=== PATIENT | male | born 1950 | race Caucasian/White ===

== ENCOUNTER 2025-07-06 10:44 | Emergency (ER) | payer MEDICARE, SELFPAY ==
--- OUTSIDE RECORDS SUMMARY | 2025-07-06 10:52 | XMS_ITS | Encounter Summary ---
Author Organization [facility] Address [address] [place] [address] Phone Care Team Providers Care Construction Safety Manager Name Role Phone Jacinto Freeman MD Primary Care Provider [phone] Jacinto Freeman MD Primary Care Provider [phone] Jacinto Freeman MD Primary Care Provider [phone] Jacinto Freeman MD Unavailable [phone] Jose Luis Colmenares NP Unavailable [phone] Encounter Details Date Type Department Care Team (Latest Contact Info) Description 09/22/2008 Orders Only [facility] Scanning, Provider Social History Tobacco Use Types Packs/Day Years Used Date Smoking Tobacco: Never Assessed Sex and Gender Information Value Date Recorded Sex Assigned at Not on file Legal Sex Male 11:50 PM [employer]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 Gender Identity Not on file Sexual Orientation Not on file documented as of this encounter Plan of Treatment Scheduled Procedures Name Priority Associated Diagnoses Date/Ti me COLONOSCOPY Encounter for screening colonoscopy documented as of this encounter Procedures Procedure Name Priority Date/Time Associated Diagnosis Comments CARDIOLOGY DOCUMENT SCAN 09/22/2008 documented in this encounter Results * SCAN - CARDIOLOGY (09/22/2008) Anatomical Region Laterality Modality Other us Provider Scanning [facility] CARDIAC SERVICES PROCEDURES Final Result documented in this encounter Visit Diagnoses Not on filedocumented in this encounter Additional Health Concerns Infection Onset Date Last Indicated Resolved Time COVID: Suspected 10/30/2024 10/30/2024 10/30/2024 1:15 PM CDT documented as of this encounter Care Teams Construction Safety Manager Relationship Specialty Start Date End Date Jacinto Freeman MD [address] [place] [address] PCP - General 11/02/07 06/06/11 Jacinto Freeman MD [address] [place] [address] PCP - General 06/07/11 12/26/17 Jacinto Freeman MD [address] [place] [address] PCP - General 12/27/17 Jacinto Freeman MD [address] [place] [address] 12/27/17 Jose Luis Colmenares, KIRT [address] [place] [address] [place] [address] Nurse Practitioner Orthopedic Surgery 04/11/25 documented as of this encounter
--- OUTSIDE RECORDS SUMMARY | 2025-07-06 10:52 | XMS_ITS | Encounter Summary ---
Author Organization [facility] Address [address] [place] [address] Phone Care Team Providers Care Tandem Operator Name Role Phone Jacinto Freeman MD Primary Care Provider [phone] Jacinto Freeman MD Unavailable [phone] Jose Luis Colmenares NP Unavailable [phone] Encounter Details Date Type Department Care Team (Late st Contact Info) Description 12/27/2017 Telephone [facility] Cardiology [address] [facility] 8[address] [place] [address] [place] [id number] Gordon Castillo MD [address] [address] Social History Tobacco Use Types Packs/Day Years Used Date Smoking Tobacco: Never Smokeless Tobacco: Never Sex and Gender Information Value Date Recorded Sex Assigned at Not on file 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 Gender Identity Not on file Sexual Orientation Not on file documented as of this encounter Plan of Treatment Scheduled Procedures Name Priority Associated Diagnoses Date/Ti me COLONOSCOPY Encounter for screening colonoscopy documented as of this encounter Visit Diagnoses Not on filedocumented in this encounter Additional Health Concerns Infection Onset Date Last Indicated Resolved Time COVID: Suspected 10/30/2024 10/30/2024 10/30/2024 1:15 PM CDT documented as of this encounter Care Teams Tandem Operator Relationship Specialty Start Date End Date Jacinto Freeman MD [address] [place] [address] PCP - General 12/27/17 Jacinto Freeman MD [address] [place] [address] 12/27/17 Jose Luis Colmenares NP [address] [place] [address] [place] [address] Nurse Practitioner Orthopedic Surgery 04/11/25 documented as of this encounter
--- OUTSIDE RECORDS SUMMARY | 2025-07-06 10:52 | XMS_ITS | Clinical Summary ---
Author Organization [facility] Address [address] [place] [address] Care Team Providers Care Computer Information Science Professor Name Role Phone Jacinto Freeman MD Primary Care Provider [phone] Jacinto Freeman MD Unavailable [phone] Jose Luis Colmenares NP Unavailable [phone] Allergies Active Allergy Reactions Criticality Noted Date Comments Lisinopril Cough Low 03/11/2020 Medications hydroCHLOROthiazi de (HYDRODIURIL) 25 mg tabletIndications :Hypertension associated with type 2 diabetes mellitus (HCC) TAKE 1 TABLET(25 MG) BY MOUTH DAILY 90 tablet 3 024 Active fluticasone propionate (FLONASE) 50 mcg/actuation nasal sprayIndications: Upper respiratory tract infection, unspecified type SHAKE LIQUID AND USE 2 SPRAYS IN EACH NOSTRIL DAILY 48 g 024 Active nitroglycerin (NITROSTAT) 0.[address] 1 tablet (0.4 mg total) under the tongue every 5 (five) minutes as needed for chest pain 25 tablet 11 024 Active losartan (COZAAR) 100 mg tabletIndications :Hypertension associated with type 2 diabetes mellitus (HCC) Take 1 tablet (100 mg total) by mouth daily 90 tablet 3 025 Active glipiZIDE (GLUCOTROL) 5 mg tabletIndications :Type 2 diabetes mellitus with stage 3a chronic kidney disease, without long-term current use of insulin (HCC) TAKE 1 TABLET (5 MG) BY MOUTH TWICE DAILY BEFORE BREAKFAST AND LUNCH 60 tablet 11 025 Active atorvastatin (LIPITOR) 80 mg tablet Take 1 tablet (80 mg total) by mouth daily 90 tablet 3 025 Active levothyroxine (SYNTHROID) 50 mcg tablet Take 1 tablet (50 mcg total) by mouth daily 90 tablet 4 025 Active metFORMIN (GLUCOPHAGE) 500 mg tabletIndications :Controlled type 2 diabetes mellitus with hyperglycemia, without long-term current use of insulin TAKE 1 TABLET BY MOUTH TWICE DAILY WITH MEALS 180 tablet 3 025 Active aspirin 81 mg enteric coated tabletIndications :stop 5 days before surgery Take 1 tablet (81 mg total) by mouth 2 (two) times a day for 14 days, THEN 1 tablet (81 mg total) daily. 025 2025 Active ascorbic acid (VITAMIN C) 500 mg tablet,chewableIn dications:Vitamin deficiency prevention Take 1 tablet/chew tab (500 mg total) by mouth 2 (two) times a day 60 tablet/chew tab 025 Active ferrous sulfate 325 mg (65 mg of elemental iron) tabletIndications :Iron Deficiency Anemia,Anemia prevention Take 1 tablet (325 mg total) by mouth daily with breakfast 30 tablet 025 2025 Active ondansetron ODT (ZOFRAN-ODT) 4 mg disintegrating tabletIndications :Prevention of Post-Operative Nausea and Vomiting,nausea and vomiting Take 1 tablet (4 mg total) by mouth every 6 (six) hours as needed for nausea or vomiting 20 tablet 1 025 Active senna-docusate (PERICOLACE) 8.6-50 mgIndications:con stipation Take 1 tablet by mouth 2 (two) times a day as needed for constipation 60 tablet 1 025 Active QUEtiapine (SEROquel) 300 mg tabletIndications :Bipolar affective disorder, remission status unspecified (HCC) TAKE 1 TABLET BY MOUTH EVERY NIGHT 100 tablet 1 025 Active ezetimibe (ZETIA) 10 mg tablet TAKE 1 TABLET(10 MG) BY MOUTH DAILY 90 tablet 3 025 Active allopurinoL (ZYLOPRIM) 100 mg tablet TAKE 2 TABLETS(200 MG) BY MOUTH DAILY 60 tablet 11 025 Active carvediloL (COREG) 25 mg tabletIndications :Chronic ischemic heart disease,Hypertens ion associated with type 2 diabetes mellitus (HCC) TAKE 1 TABLET(25 MG) BY MOUTH TWICE DAILY WITH MEALS 200 tablet 1 025 Active colchicine (COLCRYS) 0.6 mg capsule TAKE 1 CAPSULE(0.6 MG) BY MOUTH DAILY 30 capsule 6 022 2021 Discontinued allopurinoL (ZYLOPRIM) 100 mg tablet TAKE 2 TABLETS(200 MG) BY MOUTH DAILY 60 tablet 11 024 2024 Discontinued carvediloL (COREG) 25 mg tabletIndications :Chronic ischemic heart disease,Hypertens ion associated with type 2 diabetes mellitus (HCC) TAKE 1 TABLET(25 MG) BY MOUTH TWICE DAILY WITH MEALS 200 tablet 1 025 2024 Discontinued Active Problems Problem Noted Date Diagnosed Date Rotator cuff arthropathy, right 04/10/2025 Status post reverse total arthroplasty of right shoulder 04/10/2025 Rotator cuff tear arthropathy of right shoulder 03/20/2025 Pre-op testing 03/10/2025 Assessment & Plan (03/10/2025 2:25 PM CDT): No contraindications from family Medicine standpoint for upcoming shoulder procedure. He will obtain cardiac clearance. Bilateral impacted cerumen 03/10/2025 Assessment & Plan (03/10/2025 2:26 PM CDT): Canals cleared. RTC for any recurrent concerns. Lightheadedness 02/02/2025 Assessment & Plan (02/02/2025 8:36 AM CDT): Most likely multifactorial. However, reveiwed import of er evaluation should symptoms develop or recur to evaluation for any acute neurological event vs cardiac event. Chronic fatigue 02/02/2025 Assessment & Plan (02/02/2025 8:37 AM CDT): Most liekly mfulfiaciotrl . Check tfts and dosing regimen. Will follow resopnse. BMI 32.0-32.9,adult 02/02/2025 Obesity (BMI 30.0-34.9) 02/02/2025 Type 2 diabetes mellitus wit h stage 3a chronic kidney disease, without long-term current use of insulin 08/16/2024 Assessment & Plan (03/10/2025 2:26 PM CDT): Stable. Continue glipizide, metformin. Continue heart healthy diet. Will continue to monitor. Assessment & Plan (10/30/2024 1:20 PM CDT): Renal function stable. Assessment & Plan (08/16/2024 10:01 AM BODY CORPORATE MANAGER): Reviewed kidney function and labs today with patient. Stable overall; he is taking short course of Celebrex for current shoulder pain. States he plans to take Celebrex for the next 2 weeks. Is aware not to take any additional NSAIDs. Continue drinking plenty of fluids. Blood pressure is well controlled. Will continue to monitor labs Class 1 obesity due to exces s calories with serious comorbidity and body mass index (BMI) of 31.0 to 31.9 in adult 02/06/2024 Assessment & Plan (10/11/2024 8:35 AM CDT): Weight appropriate for patient. Assessment & Plan (02/06/2024 11:06 AM CDT): Discussed healthy diet and importance of regular physical activity. Acute rhinitis 02/06/2024 Assessment & Plan (10/30/2024 1:23 PM CDT): Recommend continuing Flonase nasal spray, adding saline nasal wash and daily Zyrtec. Discussed nasal saline rinses/neti pots. Push fluids. If not improving in the next 4 or 5 days start antibiotic which was E scribed today. Reviewed red flags; what would warrant rtc. Assessment & Plan (02/06/2024 11:36 AM CDT): Intermittent nasal congestion and drainage for the past several weeks. Patient denies any headaches, sinus pressure or fevers. Normal exam today. Recommended he increase Flonase to b.i.d. and trial nonsedating antihistamine such as Zyrtec. Follow-up if no improvement in the next 2 weeks or sooner if experiencing any new or worsening symptoms. Can consider antibiotic no improvement. Impacted cerumen of right ear 08/08/2023 Assessment & Plan (08/08/2023 12:31 PM BODY CORPORATE MANAGER): Recommended use of kyvb-ubq-tniurax Debrox drops x1 week then returned to office for irrigation. May schedule a nurse visit. [facility] Assessment & Plan (08/16/2024 9:56 AM BODY CORPORATE MANAGER): Preventative exam; reviewed screenings and vaccinations. Influenza vaccine given today. Assessment & Plan (08/08/2023 12:30 PM BODY CORPORATE MANAGER): Preventive exam; reviewed recommended preventive screenings and vaccinations. Encourage annual flu vaccine. -updated care team Controlled type 2 diabetes lilliana argueta without complication, without long-term current use of insulin 05/16/2022 Assessment & Plan (02/02/2025 8:35 AM CDT): Reviewed glycmie ccontorl and will target response. No sig hypoglycmiea and will follwor esopnse. Assessment & Plan (08/16/2024 9:58 AM BODY CORPORATE MANAGER): Lab Results Component Value Date HGBA1C 6.1 (H) 08/09/2024 HGBA1C 6.3 (H) 02/01/2024 HGBA1C 6.1 (H) 08/16/2023 Checking blood sugars regularly. Working on following a lower carb/sugar diet. Compliant with metformin and glipizide. No loss of protective senses. Current on eye exam. Assessment & Plan (02/06/2024 11:37 AM CDT): Lab Results Component Value Date HGBA1C 6.3 (H) 02/01/2024 HGBA1C 6.1 (H) 08/16/2023 HGBA1C 5.9 (H) 09/02/2022 No changes made today. Patient is current on eye exam, will request records from Dr. Mancuso Current medications: Metformin 500 mg b.i.d. Glipizide 5 mg b.i.d. Assessment & Plan (08/08/2023 11:10 AM BODY CORPORATE MANAGER): Lab Results Component Value Date HGBA1C 5.9 (H) 09/02/2022 HGBA1C 6.2 (H) 05/23/2022 HGBA1C 6.2 (H) 04/20/2021 Compliant with metformin and glipizide. Microalbumin ordered today. Will notify patient of results once received and make any additional changes as needed continue checking blood glucose at home. Continue daily foot care. Assessment & Plan (05/16/2022 1:57 PM CDT): Lab Results Component Value Date HGBA1C 6.2 (H) 04/20/2021 HGBA1C 11.3 (H) 11/02/2020 HGBA1C 7.5 (H) 09/28/2018 Patient is taking metformin and glipizide as prescribed. Denies any s/s of hypo/hyperglycemia. Encouraged patient to check feet daily, denies any neuropathies. Current on annual dilated eye exam. Labs ordered. Follow up in 6 months. Hypertension associated with type 2 diabetes viola litus 05/16/2022 Assessment & Plan (03/10/2025 2:25 PM CDT): Well controlled on carvedilol, HCTZ, losartan. Will continue. Assessment & Plan (02/02/2025 8:36 AM CDT): Stable on losratn and hctZ and will montior pseonse. Continue son carvedilol. Assessment & Plan (10/30/2024 1:20 PM CDT): Stable. No changes. Assessment & Plan (08/16/2024 9:56 AM BODY CORPORATE MANAGER): Stable; continue present management with carvedilol, losartan and hydrochlorothiazide. Assessment & Plan (02/06/2024 11:07 AM CDT): Blood pressure is well controlled. No changes made today. Continue on carvedilol, losartan and hydrochlorothiazide. Assessment & Plan (08/08/2023 12:31 PM BODY CORPORATE MANAGER): Blood pressure is well controlled, continue present management. Medications: -carvedilol 25 mg -losartan 100 mg daily -hydrochlorothiazide 25 mg daily Assessment & Plan (05/16/2022 2:10 PM CDT): Blood pressure is well controlled on current medication regimen. Encounter for screening colonoscopy 01/29/2021 Overview (01/29/2021): Added automatically from request for surgery [id number] Sessile colonic polyp 11/24/2020 Overview (11/24/2020): Added automatically from request for surgery [id number] Bipolar disorder 09/19/2019 Assessment & Plan (02/02/2025 8:37 AM CDT): Continue f/u with pyschiatry. No chagne in medicaiton regimen and will follow respnose. Chronic idiopathic gout 08/22/2019 Arthritis of left acromioclavicular joint 2018 Overview (11/19/2018): Added automatically from request for surgery [id number] Biceps tendinitis of left upper extremity 2018 Overview (11/19/2018): Added automatically from request for surgery [id number] Impingement syndrome of left shoulder 11/19/2018 Overview (11/19/2018): Added automatically from request for surgery [id number] Nontraumatic incomplete tear of left rotator cuf f 11/19/2018 Overview (11/19/2018): Added automatically from request for surgery [id number] Elevated PSA 09/20/2018 Overview (09/20/2018): Added automatically from request for surgery [id number] Assessment & Plan (08/16/2024 9:56 AM BODY CORPORATE MANAGER): Continues annual follow-up with Urology. No urinary symptoms. Assessment & Plan (08/08/2023 12:32 PM BODY CORPORATE MANAGER): Following with Urology annually. Bronchitis 10/31/2016 Overview (12/09/2016): Bronchitis Hyperlipidemia associated with type 2 diabetes m raúlitus 05/10/2016 Overview (10/21/2016): Mixed hyperlipidemia Assessment & Plan (03/10/2025 2:25 PM CDT): LDL 59. Continue atorvastatin, ezetimibe. Will continue to monitor. Assessment & Plan (02/02/2025 8:35 AM CDT): Continues on high intensity statin therpay and will follow response. Assessment & Plan (08/16/2024 9:56 AM BODY CORPORATE MANAGER): Cholesterol looks great, LDL at goal. Continue atorvastatin 80 mg daily Assessment & Plan (02/06/2024 11:07 AM CDT): Cholesterol is at goal, LDL = 56. Continue atorvastatin 80 mg daily Skin tag 05/10/2016 Overview (10/21/2016): Skin tag Chronic ischemic heart disease 11/30/2013 Overview (10/19/2016): CHR ISCHEMIC HRT DIS NOS Assessment & Plan (02/02/2025 8:37 AM CDT): Contniues on secondary prevention. Will continue on aspirin and atorvastati and carvedilol and will montior esrponse. Assessment & Plan (05/16/2022 11:48 AM CDT): Following with cardiology, Dr. Castillo next OV 05/30/22. Elevated prostate specific antigen (PSA) 013 ED (erectile dysfunction) of organic origin 03/17 Coronary arteriosclerosis in [place] artery 11/30 Assessment & Plan (08/16/2024 9:57 AM BODY CORPORATE MANAGER): Continue secondary prevention. Remains asymptomatic. Following with Cardiology annually. Encouraged heart healthy diet and regular exercise. Assessment & Plan (08/08/2023 11:09 AM BODY CORPORATE MANAGER): Patient is taking atorvastatin 80 mg daily. Cardiology started Zetia 10 mg daily 3 months ago. Will check labs today, previous LDL = 83. Following with Cardiology, status post stent placement 06/2021 Assessment & Plan (05/16/2022 1:56 PM CDT): Continues high intensity statin, and dapt. Following with cardiology following stent placement 06/2021. Denies any chest pain, sob, dizziness or fatigue. Resolved Problems Problem Noted Date Diagnosed Date Resolved Date Hypotension 03/09/2015 08/08/2023 Overview (10/21/2016): Low blood pressure Hyperlipidemia 11/30/2013 08/08/2023 Overview (10/21/2016): HYPERLIPIDEMIA NEC/NOS Assessment & Plan (05/16/2022 1:55 PM CDT): 05/16/22 TC 115 HDL 22 TRG 114 LDL 70 Condition is stable Discussed/ordered labs, encouraged healthy, low carbohydrate lifestyle and at least 150min/week of exercise, continue on atorvastatin 80 mg daily. Hypertension 11/30/2013 05/16/2022 Overview (10/21/2016): HYPERTENSION NOS Encounters Date Type Department Care Team Description 07/04/2025 2:30 PM BODY CORPORATE MANAGER Lab [facility] [address] [place] [address] Hypothyroidism, unspecified type 07/03/2025 11:15 AM BODY CORPORATE MANAGER Therapy [facility] [place] [address] Gagandeep Dial, PT S/P reverse total shoulder arthroplasty, right (Primary Dx) 07/01/2025 8:30 AM BODY CORPORATE MANAGER Therapy [facility] [place] [address] Lidya Feliciano, PT S/P reverse total shoulder arthroplasty, right (Primary Dx) 07/01/2025 Orders Only [facility] [address] [place] [id number] Jacinto Freeman MD Hypothyroidism, unspecified type (Primary Dx) 06/25/2025 3:15 PM BODY CORPORATE MANAGER Therapy [facility] [place] [address] Gagandeep Dial, PT S/P reverse total shoulder arthroplasty, right (Primary Dx) 06/19/2025 1:45 PM BODY CORPORATE MANAGER Therapy [facility] [place] [address] Gagandeep Dial, PT S/P reverse total shoulder arthroplasty, right (Primary Dx); Rotator cuff impingement syndrome of right shoulder 06/09/2025 1:45 PM BODY CORPORATE MANAGER Therapy [facility] [place] [address] [place] [address] Lidya Feliciano, PT S/P reverse total shoulder arthroplasty, right (Primary Dx) 06/06/2025 10:45 AM BODY CORPORATE MANAGER Therapy [facility] [place] [address] Gagandeep Dial, PT S/P reverse total shoulder arthroplasty, right (Primary Dx) 06/05/2025 1:30 PM BODY CORPORATE MANAGER Office Visit [facility] [address] [place] [phone] Jose Luis Colmenares NP S/P reverse total shoulder arthroplasty, right (Primary Dx) 06/05/2025 7:49 AM BODY CORPORATE MANAGER - 06/05/2025 11:59 PM BODY CORPORATE MANAGER Hospital Encounter [facility] [address] [place] [id number] Discharge Disposition: Discharge to home or self care 06/05/2025 Orders Only [facility] [address] [place] [address] [address] [place] [phone] Jose Luis Colmenares, MECHANICAL REPAIR WORKER S/P reverse total shoulder arthroplasty, right (Primary Dx) 06/04/2025 10:45 AM BODY CORPORATE MANAGER Therapy [facility] [place] [address] Gagandeep Dial, PT S/P reverse total shoulder arthroplasty, right (Primary Dx) 05/30/2025 10:45 AM BODY CORPORATE MANAGER Therapy [facility] [place] [address] Radha Allan, COMMUNICATIONS REPRESENTATIVE S/P reverse total shoulder arthroplasty, right (Primary Dx) 05/26/2025 11:15 AM BODY CORPORATE MANAGER Therapy [facility] [place] [address] Gagandeep Dial, PT S/P reverse total shoulder arthroplasty, right (Primary Dx) 05/21/2025 9:30 AM BODY CORPORATE MANAGER Therapy [facility] [place] [address] Gagandeep Dial, PT S/P reverse total shoulder arthroplasty, right (Primary Dx) 05/15/2025 10:45 AM CDT Therapy [facility] [place] [address] Radha Allan, COMMUNICATIONS REPRESENTATIVE S/P reverse total shoulder arthroplasty, right (Primary Dx) 05/13/2025 10:45 AM CDT Therapy [facility] [place] [address] Radha Allan, COMMUNICATIONS REPRESENTATIVE S/P reverse total shoulder arthroplasty, right (Primary Dx) 05/08/2025 10:45 AM CDT Therapy [facility] [place] [address] Radha Allan, COMMUNICATIONS REPRESENTATIVE S/P reverse total shoulder arthroplasty, right (Primary Dx) 05/05/2025 10:45 AM CDT Therapy [facility] [place] [address] Radha Allan, COMMUNICATIONS REPRESENTATIVE S/P reverse total shoulder arthroplasty, right (Primary Dx) 04/30/2025 1:00 PM CDT Therapy [facility] [place] [address] Radha Allan, COMMUNICATIONS REPRESENTATIVE S/P reverse total shoulder arthroplasty, right (Primary Dx) 04/28/2025 1:45 PM CDT Therapy [facility] [place] [address] Gagandeep Dial, PT S/P reverse total shoulder arthroplasty, right (Primary Dx) 04/24/2025 1:30 PM CDT Office Visit [facility] [address] [place] [address] [address] [place] [address] Carlos Gillis PA S/P reverse total shoulder arthroplasty, right (Primary Dx) 04/24/2025 8:09 AM CDT - 04/24/2025 11:59 PM CDT Hospital Encounter [facility] [address] [place] [address] [address] [place] [address] Discharge Disposition: Discharge to home or self care 2025 10:00 AM CDT Therapy [facility] [place] [address] Gagandeep Dial, PT S/P reverse total shoulder arthroplasty, right 2025 Plan of Care Documentation [facility] [place] [address] 04/11/2025 Telephone [facility] [place] [address] Stew Mccracken ATC 04/10/2025 11:47 AM CDT Anesthesia Event [facility] [address] [place] [address] Christy Reich MD Kory, Christopher James, MD 04/10/2025 10:45 AM CDT - 04/10/2025 1:15 PM CDT Surgery [facility] [address] [place] [address] Luc Hutchison MD Right reverse total shoulder arthroplasty 04/10/2025 7:58 AM CDT - 04/11/2025 10:19 AM CDT Hospital Encounter [facility] [address] [place] [address] Luc Hutchison MD Rotator cuff tear arthropathy of right shoulder Discharge Disposition: Discharge to home or self care from Last 3 Months Immunizations Immunization Administration Dates Next Due Influenza, Quadrivalent, Hig h Dose, Preservative Free, Intrr 08/08/2023,05/16/2022,04/16/2021,04/03 Influenza, Quadrivalent, Spl it, Preservative Free, Intramuscular 04/27/2016 Influenza, Split 10/31/2013,10/31/2013, 0 Influenza, Trivalent, High D ose, Split, Preservative Free, Intramuscular 08/16/2024,04/17/2017 Influenza, Trivalent, Preser vative Free, Intramuscular 05/04/2016,05/04/2016 Influenza, Unspecified 04/16/2024(Deferr ed: Patient Refused),04/16/2023(Deferred: Patient Refused),03/18/2020(Deferred: Patient Refused),05/17/2019,05/17/2019, 018,03/17/2018 Pfizer SARS-CoV-2 Monovalent Vaccination (12+ Yrs) PURPLE 10/24/2020,10/01/2020 Pneumococcal Conjugate PCV 13 08/20/2018 Pneumococcal Polysaccharide PPV23 09/19/2019,,10/31/2013 ZOSTER Recombinant 01/27/2021,05/19/2020, 020 Surgical History Surgery Date Site/Laterality Comments MENISCUS SURGERY ELBOW SURGERY REPLACEMENT TOTAL KNEE Bilateral COLONOSCOPY CORONARY ANGIOPLASTY WITH STENT PLACEMENT 09/22/2008 x 2 (circulflex and LAD) PROSTATE BIOPSY 10/30/2018 Benign SHOULDER SURGERY 11/14/2013 - 12/14/2013 CARDIAC CATHETERIZATION CORONARY STENT PLACEMENT Medical History Medical History Date Comments Hypertension Chronic constipation Bipolar disorder Arthritis [facility] (my[facility] infarction) (HCC) H/O adenomatous polyp of colon 2017 Coronary artery disease Hyperlipidemia Diabetes mellitus Arrhythmia Type 2 diabetes mellitus Hypothyroidism Family History Medical History Relation Name Comments Brain cancer Brother Heart failure Mother Family history of congestive heart failure - (Added by TW Conv) Cancer Other 1 Family history of cancer; Diabetes Other 2 Family history of diabetes; Heart disease Other 3 Family history of heart problems; Other Other 4 Family history of high blood pressure; Arthritis Other 5 Family history of arthritis; Anesthesia problems Neg Hx Relation Name Status Comments Brother Father Mother Other 1 Other 2 Other 3 Other 4 Other 5 Social History Tobacco Use Types Packs/Day Years Used Date Smoking Tobacco: Former Cigars Q uit: 1985 Smokeless Tobacco: Never Tobacco Cessation:Counseling Given: Not Answered Comments:has quit for 35 years, cigars Alcohol Use Standard Drinks/Week Comments Never 0 (1 standard drink = 0.6 oz pur e alcohol) PHQ-2 Answer Date Recorded PHQ-2 Total Score (If total score is 3 or more points, staff should administer the PHQ-9) 0 01/24/2025 AUDIT-C Answer Date Recorded Q1: How often do you have a drink containing alcohol? Never 04/24/2025 Q2: How many drinks containi ng alcohol do you have on a typical day when you are drinking? Patient does not drink Q3: How often do you have si x or more drinks on one occasion? Never 04/24/2025 Personal Safety Answer Date Recorded Have you ever been in or are you currently in a harmful physical or emotional relationship or is someone making you feel afraid or unsafe? Denies 04/10/2025 Sex and Gender Information Value Date Recorded Sex Assigned at Not on file Legal Sex Male 11:50 PM BODY CORPORATE MANAGER Gender Identity Not on file Sexual Orientation Not on file Last Filed Vital Signs Vital Sign Reading Time Taken Comments Blood Pressure 115/75 06/05/2025 1:24 PM BODY CORPORATE MANAGER Pulse 67 06/05/2025 1:24 PM BODY CORPORATE MANAGER Temperature 36.2 C (97.1 F) 04/11/2025 2:01 AM CDT Respiratory Rate 18 04/11/2025 7:55 AM CDT Oxygen Saturation 92% 04/11/2025 7:55 AM CDT Inhaled Oxygen Concentration - - Weight 112.9 kg (249 lb) 06/05/2025 1:24 PM BODY CORPORATE MANAGER Height 182.9 cm (6') 06/05/2025 1:24 PM BODY CORPORATE MANAGER Body Mass Index 33.77 06/05/2025 1:24 PM BODY CORPORATE MANAGER Plan of Treatment Scheduled Procedures Name Priority Associated Diagnoses Date/Ti me COLONOSCOPY Encounter for screening colonoscopy Health Maintenance Due Date Last Done Comments Hepatitis C Screening 1950 DTaP/Tdap/Td Vaccine (1 - Tdap) 1961 Hepatitis B Screening 1968 Abdominal Aortic Aneurysm (A AA) Screen 2015 Covid-19 Vaccine (4 - 2024-2 6 season) 2025 05/28/2021, 10/24/2020, 10/01/2020 Influenza Vaccine (#1) 2025 , 08/08/2023, 05/16/2022, Additional history exists Albumin Creatinine Ratio, Urine 08/09/2025 08/09/2024, 08/08/2023, 05/23/2022 Foot Exam 08/16/2025 08/16/2024, 08/08/2023 Well Visit 65+ 08/16/2025 08/16/2024, 07/18, 05/16/2022, Additional history exists Hemoglobin A1C 09/16/2025 03/19/2025, 02/15, 08/09/2024, Additional history exists Dilated Eye Exam 11/22/2025 11/22/2024, 11/08/2023 Depression Screening 01/24/2026 01/24/2025, 10/30/2024, 10/11/2024, Additional history exists Colon Cancer Screening-Colonoscopy 01/29/2026 01/29/2021, 01/28/2021, 01/04/2018, Additional history exists Lipid Panel 03/06/2026 03/06/2025, 07/18, 02/01/2024, Additional history exists eGFR 04/10/2026 04/10/2025, 09/2024, 03/06/2025, Additional history exists Fall Risk Assessment 04/11/2026 04/11/2025, 03/20/2025, 01/24/2025, Additional history exists Pneumococcal vaccine 65+ Completed 020, 08/20/2018, 10/31/2013, Additional history exists Zoster Vaccine Completed 01/27/2021, 09/2019, 05/19/2020 Colon Cancer Screening-CT Colonography Discontinued 01/29/2021, 01/28/2021, 01/04/2018, Additional history exists Colon Cancer Screening-DNA Stool Discontinued 01/29/2021, 01/28/2021, 01/04/2018, Additional history exists Colon Cancer Screening-FIT Discontinued 01/29, 01/28/2021, 01/04/2018, Additional history exists Colon Cancer Screening-Sigmoidoscopy Discontinued 01/29/2021, 01/28/2021, 01/04/2018, Additional history exists Prostate Cancer Screening-PSA Discontinued , 11/02/2020, 03/18/2020, Additional history exists Medical Devices Implanted Type Area Imaging Account Manager Device Identifier Shelf Expiration Date Model / Serial / Lot Biotronik Inc 186036 Stent Coronary De Rx Cocr Ors Msn 3.5x13mm - [id number] - [id number] Implanted:Qty: 1 on 06/29/2021 by Yany Torrez MD at [facility] Stent N/A: Coronary [employer] 01/21/2023 [id number] / [id number] / [id number] Description:RCA Watson [employer] Nephew 2503-A Arthroscopic Delivery System [place] [employer] Suture Sterile Disposable - [id number] Implanted:Qty: 1 on 11/27/2018 by Luc Hutchison MD at [facility] Left: Shoulder [employer] 07/19/2019 2503-A / / [id number] Watson [employer] Nephew 2504-1 Regenerate Tendon [place] [employer] Suture - [id number] Implanted:Qty: 1 on 11/27/2018 by Luc Hutchison MD at [facility] Left: Shoulder [employer] 08/02/2019 2504-1 / / [id number] Watson [employer] Nephew 2169-3 Reconstitute Scaffold Large Mesh Surgical Collagen Sterile Latex - [id number] Implanted:Qty: 1 on 11/27/2018 by Luc Hutchison MD at [facility] Left: Shoulder [employer]hew 07/16/2021 2169-3 / / [id number] Arthrex Inc Univers Revers Univers [place] Shoulder 14 Stem Humeral Ar-9501-14s - [id number] Implanted:Qty: 1 on 04/10/2025 by Luc Hutchison MD at [facility] Right: Shoulder [employer] [id number] 09/14/2027 AR-9501- 14S / / [id number] Arthrex Inc Univers Revers 39mm Shoulder +3mm Medium Insert Humeral Sterile Ar-9503m-03 - [id number] Implanted:Qty: 1 on 04/10/2025 by Luc Hutchison MD at [facility] Right: Shoulder [employer] [id number] 02/14/2028 AR-9503M -03 / / [id number] Arthrex [employer] Univers Revers 39mm Suture Shoulder Right +2 Cup Humeral Gk-0569u-55vwbu - [id number] Implanted:Qty: 1 on 04/10/2025 by Luc Hutchison MD at [facility] Right: Shoulder [employer] [id number] 05/16/2029 AR-9502F -39RCPC / / [id number] Arthrex Inc Implant Pin Kit Glenoid Ar-9607s - [id number] Implanted:Qty: 1 on 04/10/2025 by Luc Hutchison MD at [facility] Right: Shoulder [employer] Inc [id number] 11/13/2029 AR-9607S / / [id number] Arthrex [employer] Component Glenoid Modular Post Reverse 20mm Ar-9582-20 - [id number] Implanted:Qty: 1 on 04/10/2025 by Luc Hutchison MD at [facility] Right: Shoulder [employer] [id number] 04/15/2029 AR-9582- 20 / / Arthrex Inc Baseplate 24mm 20 Deg Full Augment Oblique Xb-[id number] - [id number] Implanted:Qty: 1 on 04/10/2025 by Luc Hutchison MD at [facility] Right: Shoulder [employer] [id number] 04/15/2029 AR-9580- 2420 / / [id number] [employer]rex Inc Univers Revers 5.5mm 44mm Lock Modular Glenoid Peripheral Screw Ar-9563-44 - [id number] Implanted:Qty: 1 on 04/10/2025 by Luc Hutchison MD at [facility] Right: Shoulder [employer] [id number] 05/16/2028 AR-9563- 44 / / [id number] Ar[employer]rex [employer] Univers Revers Biosync 39mm 24mm Glenosphere Taper Baseplate [id number]-[id number] - [id number] Implanted:Qty: 1 on 04/10/2025 by Luc Hutchison MD at [facility] Right: Shoulder [employer] Inc [id number] 08/16/2029 AR-9564- 2439 / / [id number] Arthrex Inc Univers Revers 5.5mm 32mm Lock Modular Glenoid Peripheral Screw Ar-9563-32 - [id number] Implanted:Qty: 1 on 04/10/2025 by Luc Hutchison MD at [facility] Right: Shoulder [employer] Inc [id number] 01/13/2030 AR-9563- 32 / / [id number] Procedures Procedure Name Priority Date/Time Associated Diagnosis Comments TSH Routine 07/04/2025 2:41 PM BODY CORPORATE MANAGER Hypothyroidism, unspecified type T4, FREE Routine 07/04/2025 2:41 PM BODY CORPORATE MANAGER Hypothyroidism, unspecified type XR SHOULDER RIGHT 2 OR MORE VIEWS Routine 06/05/2025 1:24 PM BODY CORPORATE MANAGER S/P reverse total shoulder arthroplasty, right XR SHOULDER RIGHT 2 OR MORE VIEWS Schedule Routine, Read Routine (OP Routine) 04/24/2025 1:17 PM CDT S/P reverse total shoulder arthroplasty, right POCT GLUCOSE DEVICE Routine 04/11/2025 7 :58 AM CDT POCT GLUCOSE DEVICE Routine 04/11/2025 4 :35 AM CDT POCT GLUCOSE DEVICE Routine 04/11/2025 2 :04 AM CDT POCT GLUCOSE DEVICE Routine 04/10/2025 11:16 PM CDT URINALYSIS AND REFLEX TO MICROSCOPIC AND CULTURE STAT 04/10/2025 10:46 PM CDT EGFR Routine 04/10/2025 9:01 PM CDT DIFFERENTIAL AUTO STAT 04/10/2025 9:0 1 PM CDT MAGNESIUM STAT 04/10/2025 9:01 PM CDT COMPREHENSIVE METABOLIC PANEL Routine 04/10/2025 9:01 PM CDT CBC WITH AUTO DIFFERENTIAL STAT 04/10/2025 9:01 PM CDT POCT GLUCOSE DEVICE Routine 04/10/2025 8 :12 PM CDT XR SHOULDER RIGHT 2 OR MORE VIEWS IP Routine 04/10/2025 2:35 PM CDT POCT GLUCOSE DEVICE Routine 04/10/2025 2 :18 PM CDT DC AN ELECTIVE ENDOTRACHEAL AIRWAY Routine 04/10/2025 12:04 PM CDT ARTHROPLASTY SHOULDER - REVERSE TOTAL 04/10/2025 11:22 AM CDT Rotator cuff tear arthropathy of right shoulder Special Needs On-Q pain pump, --Arthrex, beach chair, NMES, Polar care, 1 liter beta rinse and aquamantys (overnight) SURGICAL PATHOLOGY Routine 04/10/2025 10:54 AM CDT Rotator cuff tear arthropathy of right shoulder ANESTHESIA PERIPHERAL BLOCK Routine 04/10/2025 9:35 AM CDT POTASSIUM, WHOLE BLOOD STAT 04/10/2025 8:28 AM CDT APTT STAT 04/10/2025 8:28 AM CDT PROTIME-INR STAT 04/10/2025 8:28 AM CDT POCT GLUCOSE DEVICE Routine 04/10/2025 8 :24 AM CDT PAIN BLOCK Routine 04/10/2025 8:05 AM CDT HEMOGLOBIN A1C Routine 03/19/2025 3:03 PM CDT Pre-op testing LIPID PANEL Routine 03/06/2025 8:40 AM CDT Hyperlipidemia associated with type 2 diabetes mellitus (HCC) Hypertension associated with type 2 diabetes mellitus (HCC) Pre-op testing DIABETIC EYE EXAM Routine 11/22/2024 1:1 1 PM CDT ALBUMIN CREATININE RATIO, URINE Routine 08/09/2024 11:25 AM BODY CORPORATE MANAGER Controlled type 2 diabetes mellitus without complication, without long-term current use of insulin (HCC) PSA, TOTAL AND FREE Routine 11/09/2022 11:55 AM CDT Elevated PSA COLONOSCOPY 01/29/2021 2:20 PM CDT from Last 3 Months or Most Recently Relevant to Health Maintenance Results * TSH (07/04/2025 2:41 PM BODY CORPORATE MANAGER) Thyroid Stimulating Hormone 0.86 0.30 - 4.20 mcIUnit/mL Comment:Testing performed by : [facility], [address] [place] [address], [place]., [address] Blood 07/04/2025 2:41 PM BODY CORPORATE MANAGER 07/04/2025 7:11 PM BODY CORPORATE MANAGER Jacinto Freeman MD LAB BLOOD ORDERABLES Deepti l Result [facility] RAZ) 1 [facility] [place] [address] * T4, free (07/04/2025 2:41 PM BODY CORPORATE MANAGER) Free T4 1.04 0.90 - 1.70 ng/dL Comment:Testing performed by : [facility], [address] [place] [address], [place]., [address] Blood 07/04/2025 2:41 PM BODY CORPORATE MANAGER 07/04/2025 7:11 PM BODY CORPORATE MANAGER Result [facility] Jacinto Freeman MD LAB BLOOD ORDERABLES Deepti l Result Performing Organization Address [facility] Co de Phone Number [facility] ([place]) 1 [facility] [place] [address] * XR Shoulder Right 2 or More Views (06/05/2025 1:24 PM BODY CORPORATE MANAGER) Anatomical Region Laterality Modality Upper Extremities, Shoulder Right Dig[employer] er[employer] Radiography Narrative 06/05/2025 1:46 PM BODY CORPORATE MANAGER X-rays reviewed and interpreted by myself and in my opinion, demonstrate no acute fractures, subluxations or destructive lesions. Status post reverse total shoulder changes with implants in acceptable position. Jose Luis Colmenares NP IMG XR PROCEDURES Final Result * XR Shoulder Right 2 or More Views (04/24/2025 1:17 PM CDT) Anatomical Region Laterality Modality Upper Extremities, Shoulder Right [employer] er[employer] Radiography Narrative 04/24/2025 1:29 PM CDT XR show RTSA implants in acceptable position with no signs of fracture or dislocation. Carlos Kylie Newgent PA IMG XR PROCEDURES Final Res ult * POCT glucose (04/11/2025 7:58 AM CDT) Glucose, POC 161 70 - 199 mg/dL Blood 04/11/2025 7:58 AM CDT 04/11/2025 7:58 AM CDT Luc Hutchison MD LAB POCT ORDERABLES - DEVICE Final Result Performing Organization Address City/[facility]/ZIP Co de Phone Number IKER HARRIS ([place]) 1 [facility] [place] [address] * POCT glucose (04/11/2025 4:35 AM CDT) Glucose, POC 178 70 - 199 mg/dL Blood 04/11/2025 4:35 AM CDT 04/11/2025 4:35 AM CDT Luc Hutchison MD LAB POCT ORDERABLES - DEVICE Final Result Performing Organization Address [facility] de Phone Number IKER HARRIS ([place]) 1 [facility] [place] [address] * (ABNORMAL) POCT glucose (04/11/2025 2:04 AM CDT) Glucose, POC 233(H) 70 - 199 mg/dL Blood 04/11/2025 2:04 AM CDT 04/11/2025 2:04 AM CDT Luc Hutchison MD LAB POCT ORDERABLES - DEVICE Final Result Performing Organization Address [facility] Co de Phone Number IKER HARRIS ([place]) 1 [facility] [place] [address] * (ABNORMAL) POCT glucose (04/10/2025 11:16 PM CDT) Glucose, POC 224(H) 70 - 199 mg/dL Comment:Glu2: RN/ Notified Blood 04/10/2025 11:1 6 PM CDT 04/10/2025 11:16 PM CDT us Luc Hutchison MD LAB POCT ORDERABLES - DEVICE Final Result Performing Organization Address [facility] Co de Phone Number [facility] (RAZ) 1 [facility] Department [place] [address] * (ABNORMAL) Urinalysis reflex to microscopic and culture Urine (04/10/2025 10:46 PM CDT) Color, ur Yellow Yellow Clarity, ur Clear Clear [facility] (RAZ) Specific gravity, ur 1.020 1.003 - 1.030 [facility] ([place]Z) pH, urine 6.5 [facility] ([facility]Z) Comment: Interpretive Data U rine pH is affected by diet, medications, systemic acid-base disturbances, and renal tubular function. pH may affect urinary stone formation. For example, urine pH below 6.0 may help reduce the tendency for calcium phosphate stones and pH greater than 6.0 may reduce the tendency for uric acid stone formation. Source: [facility] Current Interpretive Data was last revised on 2017 Protein, ur ql Negative Negative [facility] (RAZ) Glucose, ur ql 4+(A) Negative [facility] (RAZ) Ketones, ur Negative Negative [facility] (RAZ) Bilirubin, ur Negative Negative [facility] (RAZ) Blood, ur Negative Negative [facility] ([place]) Urobilinogen, ur <2.0 <2.0 mg/dL [facility] ([place]Z) Nitrite, ur Negative Negative [facility] (RAZ) Leukocyte esterase, ur Negative Negative [facility] (RAZ) UA reflex comment Reflex conditions for microscopic UA and culture not met. [facility] (RAZ) Urine 04/10/2025 10:4 6 PM CDT 04/10/2025 10:50 PM CDT us Britt Del Castillo MD LAB MICROBIOLOGY - GENE RAL ORDERABLES Final Result IK[facility]IS ([place]) 1 [facility] Department [place] [address] * (ABNORMAL) eGFR (04/10/2025 9:01 PM CDT) eGFR 56(L) >=60 mL/min/1. 73 m2 Comment: Interpretive Data Reference Interval Normal >/= 90 mL/min/1.73m2 Mildly decreased* 60 - 89 mL/min/1.73m2 Mildly to moderately decreased 45 - 59 mL/min/1.73m2 Moderately to severely decreased 30 - 44 mL/min/1.73m2 Severely decreased 15 - 29 mL/min/1.73m2 Kidney Failure < 15 mL/min/1.73m2 *Relative to young adult level Estimated glomerular filtration rate is determined by the 2020 CKD-EPI equation recommended by the National Kidney Foundation (A Unifying Approach to GFR Estimation: Recommendations of the NKF-ASK Task Force on Reassessing the Inclusion of Race in Diagnosing Kidney Disease, JASN 2020). The CKD-EPI equation should not be used for patients with unstable renal function and has not been validated in children and those over 70. Current interpretive data was last reviewed 2021. Blood 04/10/2025 9:01 PM CDT 04/10/2025 9:06 PM CDT us Britt Del Castillo MD LAB BLOOD ORDERABLES Fi nal Result IKER [facility]ARRIS (RAZ) 1 [facility] Department [place] [address] * (ABNORMAL) Differential, auto (04/10/2025 9:01 PM CDT) Neutrophil abs 9.65(H) 1.50 - 6.50 K/cumm Imm gran abs 0.04 0.00 - 0.10 K/cumm [facility] ([facility]Z) Lymphocyte abs 0.62(L) 0.80 - 3.30 K/cumm [facility] ([place]Z) Monocyte abs 0.23 0.20 - 0.80 K/cumm [facility] ([facility]Z) Eosinophil abs 0.00 0.00 - 0.50 K/cumm [facility] ([place]Z) Basophil abs 0.01 0.00 - 0.10 K/cumm [facility] ([facility]Z) Neutrophil pct 91.4 % [facility] (RAZ) Comment: Interpretive Data Percent cell count reference ranges are not reported, since discordance with absolute values may lead to misinterpretation of CBC data. Current Interpretive Data was last revised on 2017. Imm gran pct 0.4 % [facility] ([facility]Z) Comment: Interpretive Data Percent cell count reference ranges are not reported, since discordance with absolute values may lead to misinterpretation of CBC data. Current Interpretive Data was last revised on 2017. Lymphocyte pct 5.9 % [facility] ([place]) Comment: Interpretive Data Percent cell count reference ranges are not reported, since discordance with absolute values may lead to misinterpretation of CBC data. Current Interpretive Data was last revised on 2017. Monocyte pct 2.2 % [facility] ([place]) Comment: Interpretive Data Percent cell count reference ranges are not reported, since discordance with absolute values may lead to misinterpretation of CBC data. Current Interpretive Data was last revised on 2017. Eosinophil pct 0.0 % [facility] ([place]) Comment: Interpretive Data Percent cell count reference ranges are not reported, since discordance with absolute values may lead to misinterpretation of CBC data. Current Interpretive Data was last revised on 2017. Basophil pct 0.1 % [facility] ([place]) Comment: Interpretive Data Percent cell count reference ranges are not reported, since discordance with absolute values may lead to misinterpretation of CBC data. Current Interpretive Data was last revised on 2017. Blood 04/10/2025 9:01 PM CDT 04/10/2025 9:06 PM CDT us Britt Del Castillo MD LAB BLOOD ORDERABLES Fi nal Result IKER STEVEN ([place]) 1 [facility] Department [place] [address] * (ABNORMAL) CBC with auto differential (04/10/2025 9:01 PM CDT) WBC 10.55(H) 3.80 - 9.90 K/cumm Hgb 14.6 13.0 - 17.5 g/dL [facility] ([facility]) Hct 43.9 38.9 - 50.3 % [facility] ([place]) Plt 225 150 - 400 K/cumm [facility] ([place]) MPV 9.7 9.1 - 12.3 fL [facility] ([facility]) RBC 4.89 4.30 - 5.80 M/cumm [facility] ([place]) MCV 89.8 81.3 - 96.4 fL [facility] ([facility]) MCH 29.9 27.1 - 33.3 pg [facility] ([place]) MCHC 33.3 32.3 - 35.7 g/dL [facility] ([facility]) RDW CV 14.6 11.1 - 14.9 % [facility] ([facility]) RDW SD 48.0 35.7 - 48.1 fL [facility] (R[facility]) NRBC abs 0.00 0.00 - 0.01 K/cumm [facility] ([facility]) Blood 04/10/2025 9:01 PM CDT 04/10/2025 9:06 PM CDT Britt Del Castillo MD LAB BLOOD ORDERABLES Fi nal Result Performing Organization Address City/[facility] Co de Phone Number [facility] ([place]Z) 1 [facility] Department [place] [address] * Magnesium (04/10/2025 9:01 PM CDT) Magnesium 1.9 1.4 - 2.5 mg/dL [facility] (RAZ) Blood 04/10/2025 9:01 PM CDT 04/10/2025 9:06 PM CDT Britt Del Castillo MD LAB BLOOD ORDERABLES Fi nal Result Performing Organization Address City/[facility]/ZIP Co de Phone Number IKER HARRIS (RAZ) 1 [facility] Department [place] [address] * (ABNORMAL) Comprehensive metabolic panel (04/10/2025 9:01 PM CDT) Sodium 136 135 - 145 mmol/L [facility] ([facility]) Potassium, pl 4.1 3.3 - 4.9 mmol/L [facility] ([facility]) Chloride 104 97 - 110 mmol/L [facility] ([facility]) CO2 20(L) 22 - 32 mmol/L [facility] ([facility]) Anion gap 12 2 - 15 mmol/L [facility] ([facility]) BUN 21 6 - 25 mg/dL [facility] ([facility]) Creatinine 1.34(H) 0.80 - 1.30 mg/dL [facility] ([facility]) Glucose 317(H) 70 - 199 mg/dL [facility] ([facility]Z) Comment: Interpretive Data Fasting glucose >/= 126 mg/dl is diagnostic for diabetes. Fasting is defined as no caloric intake for at least 8 hours. Fasting glucose between 100 mg/dl to 125 mg/dl is diagnostic of prediabetes. In a patient with classic symptoms of hyperglycemia or hyperglycemic crisis, a random glucose >/= 200 mg/dl is diagnostic for diabetes. In the absence of unequivocal hyperglycemia, results should be confirmed by repeat testing. The classification and Diagnosis of Diabetes Diabetes Care 2021; 46: S19-S40. Current interpretive data was last revised 2022. Calcium 9.1 8.5 - 10.3 mg/dL [facility] ([facility]Z) Bilirubin, total 0.9 0.1 - 1.2 mg/dL [facility] ([place]) Protein, pl 6.3(L) 6.5 - 8.5 g/dL [facility] ([place]) Albumin 3.8 3.5 - 5.0 g/dL [facility] ([place]) Alk phos 88 40 - 130 Units/L [facility] ([place]) ALT 19 7 - 55 Units/L [facility] ([place]) AST 23 10 - 50 Units/L [facility] ([facility]Z) Blood 04/10/2025 9:01 PM CDT 04/10/2025 9:06 PM CDT us Britt Del Castillo MD LAB BLOOD ORDERABLES Fi nal Result IKER [facility]ARRIS ([place]) 1 [facility] Department [place] [address] * (ABNORMAL) POCT glucose (04/10/2025 8:12 PM CDT) Glucose, POC 327(H) 70 - 199 mg/dL Comment:Glu2: RN/ Notified Blood 04/10/2025 8:12 PM CDT 04/10/2025 8:12 PM CDT Luc Hutchison MD LAB POCT ORDERABLES - DEVICE Final Result Performing Organization Address City/[facility] Co de Phone Number IKER HARRIS ([place]) 1 [facility] [place] [address] * XR Shoulder Right 2+ View (04/10/2025 2:35 PM CDT) Anatomical Region Laterality Modality Upper Extremities, Shoulder Right Comp uted Radiography 04/10/2025 3:24 PM CDT Narrative 04/10/2025 3:27 PM CDT EXAM DESCRIPTION: XR SHOULDER RIGHT 2 OR MORE VIEWS REASON FOR STUDY: post op Post op rt shoulder TECHNIQUE: 2 radiographic view(s) of the right shoulder . COMPARISON: 10/15/2024 FINDINGS: There are postsurgical changes of right shoulder arthroplasty noted. There is no definite evidence of an unexpected radiopaque foreign body or fracture. There is subcutaneous emphysema noted, which is expected for postsurgical status. There are degenerative changes of the right acromioclavicular joint with joint space narrowing and spurring. There are degenerative changes of the spine. IMPRESSION: 1. Postsurgical changes right shoulder arthroplasty are noted without definite evidence of an unexpected radiopaque foreign body or fracture. THIS IS AN ELECTRONICALLY VERIFIED FINAL REPORT 04/10/2025 3:27 PM - Electronically signed by Filipe Pal D.O. PS: PS Report ID: [id number] Reading Location: [id number] Procedure Note Filipe Pal DO - 04/10/2025 EXAM DESCRIPTION: XR SHOULDER RIGHT 2 OR MORE VIEWS REASON FOR STUDY: post op Post op rt shoulder TECHNIQUE: 2 radiographic view(s) of the right shoulder . COMPARISON: 10/15/2024 FINDINGS: There are postsurgical changes of right shoulder arthroplasty noted.There is no definite evidence of an unexpected radiopaque foreign body orfracture. There is subcutaneous emphysema noted, which is expected for postsurgical status. There are degenerative changes of the right acromioclavicularjoint with joint space narrowing and spurring. There are degenerative changesof the spine. IMPRESSION: 1. Postsurgical changes right shoulder arthroplasty are noted without definite evidence of an unexpected radiopaque foreign body or fracture. THIS IS AN ELECTRONICALLY VERIFIED FINAL REPORT 04/10/2025 3:27 PM - Electronically signed by Filipe Pal D.O. PS: PS Report ID: [id number] Reading Location: [id number] us Jose Luis Colmenares MECHANICAL REPAIR WORKER IMG XR PROCEDURES Final Result * POCT glucose (04/10/2025 2:18 PM CDT) Glucose, POC 110 70 - 199 mg/dL Blood 04/10/2025 2:18 PM CDT 04/10/2025 2:18 PM CDT us Luc Hutchison MD LAB POCT ORDERABLES - DEVICE Final Result [facility] ([place]) 1 [facility] Department [place] [address] * DC AN ELECTIVE ENDOTRACHEAL AIRWAY (04/10/2025 12:04 PM CDT) Narrative Brian Hays CRNA - 04/10/2025 12:04 PM CDT Brian Hays CRNA 04/10/2025 12:04 PM Airway Patient location: OR Urgency: elective Indications for airway management: anesthesia and airway protection Difficult airway: no Staff: Placed by: BUTTON SEWER: Brian Hays CRNA Emergent airway documentation: Risks and benefits discussed: yes Consent obtained: yes Consent given by: patient Airway prep: Preoxygenated: yes Patient position: sniffing Mask difficulty assessment: 0 - not attempted Spontaneous ventilation during airway: absent Sedation level during airway: GA Final airway details: Final airway type: endotracheal airway Tube type: ETT ETT size: 8.0 mm Cuffed: yes Technique used for successful ETT placement: video laryngoscopy Devices/Methods used in placement: intubating stylet Insertion site: oral Blade type: Logan Video blade type: Cornell Blade size: 4 Cormack-Lehane (video): grade I - full view of glottis Cuff volume: 7 mL Cuff inflated with: air ETT to lips: 23 cm Placement verified by: auscultation and CO2 detection Airway secured with: silk tape Number of attempts: 1 Ventilation between attempts: none Additional comments: Atraumatic intubation. us Christy Reich MD ANESTHESIA ORDERABLES Fi nal Result * Surgical pathology (04/10/2025 10:54 AM CDT) Tissue (Bone Fragment(s),) 04/10/2025 1:07 PM CDT Narrative [facility] ([place]) - 04/17/2025 2:14 PM CDT EPIC results best viewed via link to PDF [facility] Department of Pathology [address] [place] [id number] Note to Patients: This report may contain a detailed description of human tissue sent by a health care provider to the laboratory for pathologic evaluation. The content of this report is essential for diagnosis and may provide important critical findings. This information may be unfamiliar to patients to review without a medical professional present. It is advised that the patient review this report in the presence of a health care provider who can answer questions and explain the details. Final Report Patient Name: LEBRON GIBBONS Address: [address] [place] [id number]- Gender: M : 1950 (Age: 74) Service: Surgery Location: [facility] Hospital #: [id number] Patient Type: [facility] EP OP in bed Taken: 04/10/2025 Received: 04/11/2025 Accessioned: 04/11/2025 Reported: 04/17/2025 Physician(s):Dr. Luc Hutchison M.D. Diagnosis: Shoulder, right, total arthroplasty - Degenerative changes - See description Junito Pelaez MD PhD Report Electronically Reviewed and Signed Out By Junito Pelaez MD PhD 04/17/2025 14:14:24 Specimen(s) Received: A: Right shoulder Microscopic Description: Sections from the right shoulder specimen show bone with overlying cartilage. The cartilage shows central loss/ thinning and peripheral fragmentation in the section examined. These findings are suggestive of degenerative / osteoarthritis type changes. The underlying interstitial spaces show focal hematopoietic elements. A fragment of fibrous soft tissue is also present. Clinical correlation and continued follow-up recommended. Clinical History: Rotator cuff tear arthropathy of right shoulder. Right reverse total shoulder arthroplasty. Gross Description: The container is labeled LEBRON GIBBONS and right shoulder. It is a 6.0 cm in diameter discoid-shaped piece of red-baron bone with an articular surface on one side and an approximate 10 cc aggregate of separate dense fibrous tissue. The articular surface shows erosion, pitting and granularity. The specimen is decalcified and represented in two cassettes. Lucretia Rizzo R.N., P.A./Dexter Mercado M.D. REPORT IMAGES AND SCANNED DOCUMENTS, IF INCLUDED, ONLY VIEWABLE IN PDF VERSION OF REPORT The performance characteristics of some immunohistochemical stains, fluorescence in-situ hybridization tests and immunophenotyping by flow cytometry cited in this report (if any) were determined by the Surgical Pathology Department at [facility] as part of an ongoing coding quality coordinator program and in compliance with federally mandated regulations drawn from the Clinical Laboratory Improvement Act of 1988 (CLIA '88). Some of these tests rely on the use of analyte specific reagents and are subject to specific labeling requirements by the US Food and Drug Administration. Such diagnostic tests may only be performed in a facility that is certified by the Department of Health and Human Services as a high complexity laboratory under CLIA '88. The FDA has determined that such clearance or approval is not necessary. This test is used for clinical purposes. It should not be regarded as investigational or for research. Nevertheless, federal rules concerning the medical use of analyte specific reagents require that the following disclaimer be attached to the report: This test was developed and its performance characteristics determined by the Surgical Pathology Department [facility]. It has not been cleared or approved by the U. S. Food and Drug Administration. Note for decalcified specimens: This assay has not been validated on decalcified tissues. Results should be interpreted with caution given the possibility of false negativity on decalcified specimens us Luc Hutchison MD LAB PATHOLOGY ORDERABLES [facility] al Result [facility] ([place] [address] [place] [address] * BW IP ANE LDA PERIPHERAL NERVE CATHETER (04/10/2025 9:35 AM CDT) Narrative Christy Reich MD - 04/10/2025 9:35 AM CDT Christy Reich MD 04/10/2025 9:36 AM Peripheral Block Patient location during procedure: block room Start time: 04/10/2025 9:00 AM End time: 04/10/2025 9:15 AM Reason for block: post-op pain management per surgeon request Ultrasound image in chart or stored: yes Block type: catheter continuous infusion Laterality: right Block type: brachial plexus - interscalene Staff: Placed by: Anesthesiologist: Christy Reich MD Procedure prep: Preprocedure checklist: patient identified, procedure contraindications assessed, site marked, procedure consent, surgical consent, IV checked, risks, benefits and alternatives discussed, monitors and equipment checked and timeout performed Patient position: supine and head of bed elevated Procedure performed while patient: sedate with meaningful contact Monitoring: ECG, oximetry, blood pressure and capnography Supplemental O2: nasal cannula Prep solution: chlorhexidine/alcohol PPE: provider hat/mask, sterile gloves, sterile drape and sterile probe cover and gel Skin infiltrated with lidocaine 1%: yes Peripheral nerve block: Technique: ultrasound guided Needle type: insulated Needle gauge: 18 G Needle length: 100 mm Injection assessment: injection made incrementally with constant monitoring, local visualized surrounding nerve on ultrasound, negative aspiration for heme, no paresthesias noted and see flowsheet for medication details Assessment: Block success: full evaluation pending Events: patient tolerated procedure well with no complications Christy Reich MD ANESTHESIA ORDERABLES Fi nal Result * Potassium, whole blood (04/10/2025 8:28 AM CDT) Potassium, bld 3.7 3.3 - 4.9 mmol/L Comment: Interpretive Data This method is not able to assess for hemolysis, which may falsely increase potassium concentrations. If further testing is needed to evaluate this result, consider in-laboratory plasma potassium. Current Interpretive Data was last revised on 2022. Blood 04/10/2025 8:28 AM CDT 04/10/2025 8:40 AM CDT Angel Clayton MD LAB BLOOD ORDERABLES F inal Result Performing Organization Address City/[facility]/ZIP Co de Phone Number [facility] ([place] [address] [facility] [place] [address] * aPTT (04/10/2025 8:28 AM CDT) aPTT 28 26 - 38 sec [facility] ([place]) Comment: Interpretive Data Heparin therapeutic range: 66.0 - 100.0 seconds. Range based on correlation with therapeutic heparin activity range of 0.3 - 0.7 Units/mL. Current interpretive data was last revised on 2023. Blood 04/10/2025 8:28 AM CDT 04/10/2025 8:40 AM CDT Luc Hutchison MD LAB BLOOD ORDERABLES Final R esult [facility] ([place] 1 [facility] [place] [address] * Protime-INR (04/10/2025 8:28 AM CDT) PT 13.0 10.2 - 13.5 sec [facility] INR 1.15 0.90 - 1.20 [facility] ([facility]) Comment: Interpretive data Oral anticoagulant therapeutic ranges: Venous thromboembolism prophylaxis or treatment: 2.0-3.0 CARDIOLOGY Standard range: 2.0-3.0 High-intensity range: 2.5-3.5 Refer to indication-specific guidelines for appropriate target ranges for prosthetic heart valve replacement. Current interpretive data was last revised on 2019. Blood 04/10/2025 8:28 AM CDT 04/10/2025 8:40 AM CDT Luc Hutchison MD LAB BLOOD ORDERABLES Final R esult Performing Organization Address City/[facility]/ZIP Co de Phone Number [facility] [address] [facility] [place] [address] * POCT glucose (04/10/2025 8:24 AM CDT) Glucose, POC 171 70 - 199 mg/dL Blood 04/10/2025 8:24 AM CDT 04/10/2025 8:24 AM CDT Luc Hutchison MD LAB POCT ORDERABLES - DEVICE Final Result Performing Organization Address City/[facility] Co de Phone Number [facility] ([place]) [address] [facility] [place] [address] * (ABNORMAL) Hemoglobin A1c (03/19/2025 3:03 PM CDT) Hgb A1C 6.5(H) 4.0 - 5.6 % [facility] Estimated Average Glucose 140 mg/dL [facility] Comment: The ADA recommends reporting an estimated Average Glucose (eAG) with all Hemoglobin A1c results using the equation derived from a study of 507 normal and diabetic adults. Minority populations were underrepresented and children were not included. (Diabetes Care 31:2705-0530, 2008). The eAG is not equivalent to a fasting glucose. Testing performed by: [facility], [address] [facility], [place], [address] Blood 03/19/2025 3:03 PM CDT 03/19/2025 3:10 PM CDT us Lcu Hutchison MD LAB BLOOD ORDERABLES Final R esult [facility] ([place]) 1 [facility] Department [place] [address] * (ABNORMAL) Lipid panel (03/06/2025 8:40 AM CDT) Cholesterol 107 30 - 199 mg/dL Comment: Interpretive Data Ages < or = 19 years Acceptable: <170 mg/dL Borderline high: 170-199 mg/dL High: >or= 200 mg/dL Ages > or = 20 years Desirable: <200 mg/dL Borderline high: 200-239 mg/dL High: >or= 240 mg/dL Literature References: 1. Expert Panel on Integrated Guidelines for Cardiovascular Health and Risk Reduction in Children and Adolescents. Pediatrics 2011;128:S213 2. NCEP Expert Panel. Circulation 2004;110:227 Current Interpretive Data was last revised on 2018. Testing performed by: [facility], [address] [place] [address]., [id number] Triglycerides 110 <=149 mg/dL [facility] ([place]) Comment: Interpretive Data Ages < or = 9 years Acceptable: <75 mg/dL Borderline high: 75-99 mg/dL High: >or= 100 mg/dL Ages 10 to 20 years Acceptable: <90 mg/dL Borderline high: 90-129 mg/dL High: >or= 130 mg/dL Ages > or = 20 years Desirable: <150 mg/dL Borderline high: 150-199 mg/dL High: 200-499 mg/dL Very high: >or= 499 mg/dL Literature References: 1. Expert Panel on Integrated Guidelines for Cardiovascular Health and Risk Reduction in Children and Adolescents. Pediatrics 2011;128:S213 2. NCEP Expert Panel. Circulation 2004;110:227 Current Interpretive Data was last revised on 2018. Testing performed by: [facility], [address] [place] [address]., [address] HDL 27(L) >=40 mg/dL [facility] ([place]) Comment: Interpretive Data Ages < or = 19 years Acceptable: >45 mg/dL Borderline low: 40-45 mg/dL Low: <40 mg/dL Ages > or = 20 years Desirable: >or= 60 mg/dL Low: <40 mg/dL Literature References: 1. Expert Panel on Integrated Guidelines for Cardiovascular Health and Risk Reduction in Children and Adolescents. Pediatrics 2011;128:S213 2. NCEP Expert Panel. Circulation 2004;110:227 Current Interpretive Data was last revised on 2018. Testing performed by: [address] [address] LDL, calculated 59 <=129 mg/dL [facility] ([place]) Comment: Interpretive Data Ages < or = 19 years Acceptable: <110 mg/dL Borderline high: 110-129 mg/dL High: >or= 130 mg/dL Ages > or = 20 years Optimal: <100 mg/dL Near optimal: 100-129 mg/dL Borderline high: 130-159 mg/dL High: >160 mg/dL Calculated using the Renato LDL-C estimating equation. This equation was implemented on 2024. Prior to this date LDL-C was estimated using the Friedewald equation. Literature References: 1. Expert Panel on Integrated Guidelines for Cardiovascular Health and Risk Reduction in Children and Adolescents. Pediatrics 2011;128:S213 2. NCEP Expert Panel. Circulation 2004;110:227 3. Renato Landry al. RAMAKRISHNA Cardiol. 2020 November 14;5(5):540-548. doi: 10.1001/jamacardio.2020.0013 Current Interpretive Data was last revised on 2024. Testing performed by: [address] [address] Non-HDL Cholesterol 80 mg/dL [facility] ([place]) Comment: Interpretive Data Ages < or = 19 years Acceptable: <120 mg/dL Borderline high: 120-144 mg/dL High: >145 mg/dL Ages > or = 20 years When triglycerides are >200 mg/dL, Non-HDL cholesterol is a secondary target of therapy with treatment goals that are 30 mg/dL greater than the LDL cholesterol target. Literature References: 1. Expert Panel on Integrated Guidelines for Cardiovascular Health and Risk Reduction in Children and Adolescents. Pediatrics 2011;128:S213 2. NCEP Expert Panel. Circulation 2004;110:227 Current Interpretive Data was last revised on 2018. Testing performed by: [facility], [address] [place] [address]., [address] Chol/HDL ratio 4 [facility] ([place]) Comment:Testing performed by : [facility], [address] [place] [address]., [address] Blood 03/06/2025 8:40 AM CDT 03/06/2025 2:15 PM CDT Agnes Cantrell MECHANICAL REPAIR WORKER LAB BLOOD ORDERABLES Final Result [facility] ([place]) 1 [facility] Department [place] [address] * Diabetic Eye Exam (11/22/2024 1:11 PM CDT) Historical Provider HEALTH MAINTENANCE Edited Result - Final * Albumin Creatinine Ratio, Urine (08/09/2024 11:25 AM BODY CORPORATE MANAGER) Albumin Ur 14.5 mg/L Comment: Interpretive Data No reference range established. Current interpretive data was last revised 2018. Testing performed by: [address] [address] Creatinine Ur 158.4 mg/dL [facility] ([place]) Comment: Interpretive Data No reference range established. Current interpretive data was last revised 2018. Testing performed by: [address] [address] Albumin Creatinine Ratio, Ur 9 1 - 29 mg/g [facility] ([place]) Comment:Testing performed by : [address] [address] Urine 08/09/2024 11:2 5 AM BODY CORPORATE MANAGER 08/09/2024 7:57 PM BODY CORPORATE MANAGER Shaniqua Davey MECHANICAL REPAIR WORKER LAB URINE ORDERABLES Final Result [facility] ([place]) 1 [facility] Department [place] [address] * (ABNORMAL) PSA, total and free (11/09/2022 11:55 AM CDT) PSA-free 1.6 ng/mL [facility] PSA-Total 7.3(H) <=6.5 ng/mL [facility] PSA-Free/Total Ratio 0.22 [facility] Comment: When Total PSA is in the range of 4.0-10.0 ng/mL: Probability of Cancer fPSA/tPSA ratio 50-59 years 60-69 years >or= 70 years < or = 0.10 49% 58% 65% 0.11 - 0.18 27% 34% 41% 0.19 - 0.25 18% 24% 30% > 0.25 9% 12% 16% ADDITIONAL INFORMATION The testing method is an electrochemiluminescence assay manufactured by [employer] and performed on the Modular or Katherine system. Values obtained with different assay methods or kits may be different and cannot be used interchangeably. Test results cannot be interpreted as absolute evidence for the presence or absence of malignant disease. Test Performed by: [facility] - [address] [address] Product Marketing Analyst: Gagandeep Jacobs M.D. Ph.D.; CLIA# [id number] Blood 11/09/2022 11:5 5 AM CDT 11/10/2022 6:27 AM CDT Young Salter MD LAB BLOOD ORDERABLES Fi nal Result [facility] [address] [facility] Department of Laboratories [place] [id number] * COLONOSCOPY (01/29/2021 2:20 PM CDT) Anatomical Region Laterality Modality Other Narrative Procedure Note Ishaan Galvez MD - 01/29/2021 2:20 PM CDT ENDOSCOPY LAB Patient Name: Lebron Gibbons Procedure Date: 01/29/2021 2:20 PM Date of : 1950 Admit Type: Outpatient Age: 70 Gender: Male Attending MD: Ishaan Herrera M.D. Room: [facility] ENDOSCOPY ROOM 02 Note Status: Finalized Procedure: Colonoscopy Indications: High risk colon cancer surveillance: Personalhistory of colonic polyps, Last colonoscopy 3 years ago Providers: Ishaan Blackmon M.D. Referring MD: Jeff Jefferson MD, PHD Medicines: Monitored Anesthesia Care Complications: No immediate complications. Estimated Blood Loss: Estimated blood loss: none. Procedure: Pre-Anesthesia Assessment: - Prior to the procedure, a History and Physicalwas performed, and patient medications and allergieswere reviewed. The patient is competent. The risks and benefits of the procedure and the sedation optionsand risks were discussed with the patient. Allquestions were answered and informed consent was obtained. Patient identification and proposed procedure were verified by the physician, the nurse, the anesthesiologist, the rigger and thetechnician in the pre-procedure area in the procedure room inthe endoscopy suite. Mental Status Examination: alertand oriented. Airway Examination: normal oropharyngeal airway and neck mobility. Respiratory Examination: clear to auscultation. CV Examination: normal. Prophylactic Antibiotics: The patient does notrequire prophylactic antibiotics. Prior Anticoagulants: The patient has taken no previous anticoagulant or antiplatelet agents. ASA Grade Assessment: II - A patient with mild systemic disease. After reviewing the risks and benefits, the patient was deemed in satisfactory condition to undergo the procedure.The anesthesia plan was to use monitored anesthesiacare (MAC). Immediately prior to administration of medications, the patient was re-assessed foradequacy to receive sedatives. The heart rate, respiratory rate, oxygen saturations, blood pressure, adequacyof pulmonary ventilation, and response to care were monitored throughout the procedure. The physical status of the patient was re-assessed after the procedure. The benefits, risks and alternatives of theprocedure and sedation were discussed and informed consentwas obtained. All questions were answered. Please referto the signed informed consent document in the medical record. The scope was passed under direct vision.The [id number] was introduced through the anusand advanced to the cecum, identified by appendiceal orifice and ileocecal valve. The colonoscopy was technically difficult and complex due to a tortuous colon. Successful completion of the procedure was aided by applying abdominal pressure. The patient tolerated the procedure well. The quality of thebowel preparation was good. The quality of the bowel preparation was evaluated using the BBPS (BostonBowel Preparation Scale) with scores of: Right Colon = 2 (minor amount of residual staining, small fragmentsof stool and/or opaque liquid, but mucosa seen well), Transverse Colon = 2 (minor amount of residual staining, small fragments of stool and/or opaque liquid, but mucosa seen well) and Left Colon = 3 (entire mucosa seen well with no residual staining, small fragments of stool or opaque liquid). Thetotal BBPS score equals 7. The bowel preparation used was GoLYTELY via split dose instruction. Bowel prep was administered using a split dose. Findings: An area of mildly congested mucosa was found in the descending colonand in the transverse colon. The recto-sigmoid colon, ascending colon, cecum and appendicealorifice appeared normal. A 3 mm polyp was found in the rectum. The polyp was sessile. Thepolyp was removed with a cold biopsy forceps. Resection and retrieval were complete. Impression: - Congested mucosa in the descending colon and inthe transverse colon. - The recto-sigmoid colon, ascending colon, cecumand appendiceal orifice are normal. - One 3 mm polyp in the rectum, removed with a cold biopsy forceps. Resected and retrieved. Recommendation: - Discharge patient to home (ambulatory). - Resume previous diet. - Continue present medications. - Await pathology results. - Repeat colonoscopy in 5 years for surveillance. - Return to referring physician as previously scheduled. - A polyp or polyps were removed during your colonoscopy today. After the pathology result ofthe polyp(s) is reviewed, the doctor who performedyour colonoscopy will recommend follow-up colonoscopy to you based on current guidelines by gastroenterology societies: - If only small hyperplastic polyps from the rectumor sigmoid were removed, repeat the colonoscopy in 10 years. - If 1 or 2 polyps less than 1 cm in size are adenomas, repeat the colonoscopy in 5 years. - If 3 or more polyps are adenomas, repeat the colonoscopy in 3 years. - If there are 10 or more adenomas, repeat the colonoscopy in 1 year. - If any polyp is 10 mm or greater in size, has villous histology or high grade dysplasia,repeat the colonoscopy in 3 years. - If a polyp greater than 2 cm was removed with a piecemeal technique, repeat the colonoscopy in 6 months to be certain that there is no residualpolyp. - Sessile serrated polyps are treated like adenomas for surveillance purposes. - . Electronically signed by Ishaan Blackmon MD Ishaan Blackmon M.D. 01/29/2021 3:09:46 PM Number of Addenda: 0 Note Initiated On: 01/29/2021 2:20 PM Ishaan Blackmon MD ENDOSCOPY DC OCEDURES Final Result from Last 3 Months or Most Recently Relevant to Health Maintenance Insurance [facility] MEDICARE [facility] MEDICARE SUPPLEMENT MEDICARE [facility] MEDICARE SUPPLEMENT Advance Directives For more information, please contact: [phone] * Full Code (Latest Code Status on File) Date Activated Date Inactivated Comments 04/10/2025 3:27 PM 04/11/2025 2:24 PM * Full Code Date Activated Date Inactivated Comments 06/29/2021 9:25 AM 06/29/2021 5:26 PM * Full Code Date Activated Date Inactivated Comments 01/28/2021 7:56 AM 01/28/2021 2:30 PM * Full Code Date Activated Date Inactivated Comments 01/04/2018 3:04 PM 01/05/2018 6:15 PM Care Teams Computer Information Science Professor Relationship Specialty Start Date End Date Jacinto Freeman MD [address] [place] [address] PCP - General 12/27/17 Jacinto Freeman MD [address] [place] [address] 12/27/17 Jose Luis Colmenares, KIRT [address] [place] [address] [place] [address] Nurse Practitioner Orthopedic Surgery 04/11/25
--- OUTSIDE RECORDS SUMMARY | 2025-07-06 10:52 | XMS_ITS | Clinical Summary ---
Author Organization [facility] Address [address] [place] [address] Phone Care Team Providers Care Chief Operating Engineer Name Role Phone Jacinto Freeman MD Primary Care Provider [phone] Allergies Active Allergy Reactions Criticality Noted Date Comments Lisinopril Other (see Comments) 11/20/2023 cough Medications losartan (COZAAR) 100 MG Tablet Take 100 mg by mouth daily. Active allopurinol (ZYLOPRIM) 100 MG Tablet Take 200 mg by mouth daily. Active hydroCHLOROthia zide 25 MG Tablet Take 25 mg by mouth daily. Active carvedilol (COREG) 25 MG Tablet Take 25 mg by mouth 2 times daily. Active metFORMIN (GLUCOPHAGE) 500 MG Tablet Take 500 mg by mouth in the morning and at bedtime. Active ezetimibe (ZETIA) 10 MG Tablet Take 10 mg by mouth nightly. Active aspirin EC 81 MG Tablet Delayed Response Take 81 mg by mouth daily. Active glipiZIDE (GLUCOTROL) 5 MG Tablet Take 2.5 mg by mouth as needed. Active Fluticasone Propionate (FLONASE NA) 2 Sprays by Nasal route daily. Active Active Problems No known active problems Family History Medical History Relation Name Comments No Known Problems Father does not k now fathers history Cancer Mother Congestive Heart Failure Mother Diabetes Mother Hypertension Mother Relation Name Status Comments Father Mother Social History Tobacco Use Types Packs/Day Years Used Date Smoking Tobacco: Former Cigarettes 0 Q uit: 1984 Smokeless Tobacco: Never Tobacco Cessation:Counseling Given: Not Answered Alcohol Use Standard Drinks/Week Comments Not Currently 0 (1 standard drink = 0.6 oz pur e alcohol) Sex and Gender Information Value Date Recorded Sex Assigned at Not on file Legal Sex Male 12:42 AM CDT Gender Identity Not on file Sexual Orientation Not on file Last Filed Vital Signs Vital Sign Reading Time Taken Comments Blood Pressure 167/92 01/08/2024 9:51 AM CDT Pulse 65 01/08/2024 9:51 AM CDT Temperature 36.3 C (97.3 F) 01/08/2024 9:51 AM CDT Respiratory Rate 16 01/08/2024 9:51 AM CDT Oxygen Saturation 95% 01/08/2024 9:51 AM CDT Inhaled Oxygen Concentration - - Weight 111.1 kg (245 lb) 01/08/2024 8:27 AM CDT Height 193 cm (6' 4) 01/08/2024 8:27 AM CDT Body Mass Index 29.82 01/08/2024 8:27 AM CDT Plan of Treatment Health Maintenance Due Date Last Done Comments Hepatitis C Virus (HCV) Screening 1950 TdaP Immunization 1950 Cologuard 1995 Immunochemical Fecal Occult Blood 1995 Medicare Initial AWV [id number] 04/16/2016 Influenza Immunization (#1) 03/17/202507/18, 05/16/2022, 04/16/2021, Additional history exists SARS-COV-2 Immunization (2024- season) 2025 05/28/2021, 10/24/2020, 10/01/2020 Respiratory Syncytial Virus (RSV) Immunization (Adult) (1 - 1-dose 75+ series) 2025 Colonoscopy 01/29/2031 01/29/2021 Colorectal Cancer Screening 01/29/2031 Pneumococcal Immunization (50+ years) Completed 09/19/2019, 08/20/2018, 10/31/2013 Zoster Immunization Completed 01/27/2021, 0 Hepatitis B Immunization Aged Out No longer eligible based on patient's age to complete this topic Human Papillomavirus (HPV) Immunization (No Doses Required) Completed Meningococcal Immunization (ACWY) Aged Out No longer eligible based on patient's age to complete this topic Rotavirus Immunization Aged Out No lo nger eligible based on patient's age to complete this topic Medical Devices Implanted Type Area Geospatial Developer Device Identifier Shelf Expiration Date Model / Serial / Lot Jose [employer] Jose Tecnis 1-Piece Iol Implanted:Qty: 1 on 01/08/2024 by Kayla Main MD PhD at [facility] IMPLANT Left: Eye [employer] 06/01/2026 [id number] / [id number] / [id number] Technis 1-Piece Iol With Simplicity Delivery Stsyem Implanted:Qty: 1 on 11/27/2023 by Kayla Main MD PhD at [facility] Right: Eye 01/30/2026 [id number] / [id number] / [id number] Insurance MEDICARE [id number] Care Teams Chief Operating Engineer Relationship Specialty Start Date End [place] [address] PCP - General Internal Medicine 11/27/23
--- OUTSIDE RECORDS SUMMARY | 2025-07-06 10:52 | XMS_ITS | Encounter Summary ---
Author Organization [facility] Address [address] [place] [address] Care Team Providers Care Education Courses Sales Representative Name Role Phone Jacinto Freeman MD Primary Care Provider [phone] Jacinto Freeman MD Unavailable [phone] Jose Luis Colmenares NP Unavailable [phone] Encounter Details Date Type Department Care Team (Late st Contact Info) Description 07/01/2025 Orders Only [facility] [address] [place] [address] Jacinto Freeman MD [address] [place] [address] Hypothyroidism, unspecified type (Primary Dx) Social History Tobacco Use Types Packs/Day Years Used Date Smoking Tobacco: Former Cigars Q uit: 1985 Smokeless Tobacco: Never Comments:has quit for 35 yea rs, cigars Alcohol Use Standard Drinks/Week Comments Never [...] on file Legal Sex Male 11:50 PM STUDIO HAND Gender Identity Not on file Sexual Orientation Not on file documented as of this encounter Plan of Treatment Scheduled Procedures Name Priority Associated Diagnoses Date/Ti me COLONOSCOPY Encounter for screening colonoscopy documented as of this encounter Results * T4, free (07/04/2025 2:41 PM STUDIO HAND) Free T4 1.04 0.90 - 1.70 ng/dL Comment:Testing performed by : [address], [address] Blood 07/04/2025 2:41 PM STUDIO HAND 07/04/2025 7:11 PM STUDIO HAND Jacinto Freeman MD LAB BLOOD ORDERABLES Deepti l Result Performing Organization Address City/[facility]/ZIP Co de Phone Number [facility] [place]) [address] [facility] [place] [address] * TSH (07/04/2025 2:41 PM STUDIO HAND) Thyroid Stimulating Hormone 0.86 0.30 - 4.20 mcIUnit/mL Comment:Testing performed by : , [address] [place] [address], [address] Blood 07/04/2025 2:41 PM STUDIO HAND 07/04/2025 7:11 PM STUDIO HAND Jacinto Freeman MD LAB BLOOD ORDERABLES Deepti l Result [facility] ([place]) [facility] [place] [address] documented in this encounter Visit Diagnoses Diagnosis Hypothyroidism, unspecified type- Primary documented in this encounter Care Teams Education Courses Sales Representative Relationship Specialty Start Date End Date Jacinto Freeman MD [address] [place] [address] PCP - General 12/27/17 Jacinto Freeman MD [address] [place] [address] 12/27/17 Jose Luis Colmenares NP [address] [place] [address] Nurse Practitioner Orthopedic Surgery 04/11/25 documented as of this encounter
[2025-07-06 11:00] VITALS: BP 137/70; PULSE 109; RESP 20; TEMP 37.2; O2SAT 96
--- NOTE | 2025-07-06 11:07 | ED_ITS ---
HPI - Male Genitourinary General Chief complaint: Urogenital-Male Stated complaint: Left Flank Pain/Chills/Urinary Problem Time Seen by Provider: 07/06/25 11:10 Source: patient, family, RN notes reviewed and old records reviewed Mode of arrival: wheelchair Limitations: no limitations History of Present Illness HPI Narrative: 75 year old male accompanied by with 3 days of chills, left flank pain, pale and confused and has had vomiting today. Patient denies any burning with urination but has had frequency of urination and left flank pain with no previous history of kidney stones but states he has some prostate enlargement. states that symptoms seem to be worse today.Patient has left flank pain which does radiate to his left abdomen. Patient tested for Influenza and COVID which were both negative. MD Complaint: other (urinary frequency, 3 days chills, left flank pain and today vomiting) Onset (ago): day(s) (3) Duration: progressively worsening Radiation: left flank (radiates to left side of abdomen) Severity: moderate Related Data Home Medications ?Medication ?Instructions ?Recorded ?Confirmed ?Last Taken ?Type allopurinol 100 mg tablet mg 07/06/25 Unknown History atorvastatin 80 mg tablet mg 07/06/25 Unknown History carvedilol 25 mg tablet mg 07/06/25 Unknown History ezetimibe 10 mg tablet mg 07/06/25 Unknown History hydrochlorothiazide 25 mg tablet mg 07/06/25 Unknown History levothyroxine 50 mcg tablet mcg 07/06/25 Unknown Hist ory losartan 100 mg tablet mg 07/06/25 Unknown History metformin 500 mg tablet mg 07/06/25 Unknown History quetiapine 300 mg tablet mg 07/06/25 Unknown History Allergies Allergy/AdvReac Type Severity Reaction Status Date / Time No Known Allergies Allergy Verified 07/06/25 11:08 Review of Systems Review of Systems: CONSTITUTIONAL:Reports has felt feverish , chills, or sweats.and shaking CARDIOVASCULAR: Denies chest pain, palpitations, or edema. RESPIRATORY: Denies cough or dyspnea. GASTROINTESTINAL:reports some left flank pain with radiates to left side of abdomen, nausea, vomiting, no diarrhea. GENITOURINARY: Reports no dysuria,states frequency, urgency. left flank pain, no visible hematuria. SKIN: Denies rash or itching. MUSCULOSKELETAL: Denies back pain or myalgia. left CVA tenderness NEUROLOGIC: Denies headache All systems reviewed & are unremarkable except as noted in HPI and below PMFSH Past Medical History Medical History (Updated 07/07/25 @ 20:33 by Jayne Powers APRN) Hypertension Hypothyroidism Diabetes Enlarged prostate Social History Social History (Updated 07/06/25 @ 11:42 by Jayne Powers APRN) Living arrangements: with family Gender identity (if verbalized by the patient): Male Comments At time of signature, agree with nursing past medical, surgical, social and fami ly history. There is no relevant family history pertinent to the presenting complaint Exam Narrative: GENERAL ill-appearing, well-nourished, and in some acute distress. HEAD: Normocephalic, atraumatic. NECK: Supple.no lymphadenopathy CHEST: Clear to auscultation. No respiratory distress.SAO2 96% on room air HEART: Regular rate and rhythm. No murmur heard. Normal peripheral pulses. ABDOMEN: Soft, nontender, nondistended, normal active bowel sounds. Left CVA tenderness with some radiation to left side of abdomen, nausea and vomiting no diarrhea EXTREMITIES: Normal range of motion. No edema. SKIN: Warm, dry, no rash. NEURO: No focal deficits. Alert and oriented x3. states that patient is a little confused today Course Course Level of Care: Express Care Visit Vital Signs Vital signs: Vital Signs Temperature 37.2 C 07/06/25 11:00 Pulse Rate 109 H 07/06/25 11:00 Respiratory Rate 20 07/06/25 11:00 Blood Pressure 137/70 07/06/25 11:00 Pulse Oximetry 96 07/06/25 11:00 Oxygen Delivery Room Air 07/06/25 11:00 Temperature 37.2 C 07/06/25 11:00 Pulse Rate 109 H 07/06/25 11:00 Respiratory Rate 20 07/06/25 11:00 Blood Pressure 137/70 07/06/25 11:00 Pulse Oximetry 96 07/06/25 11:00 Oxygen Delivery Room Air 07/06/25 11:00 reviewed Transfer Transfered to: [facility] Transportation: Other (per private car with and son) Transfer rationale: feverish feeling with chills shakes, left flank pain, urinary frequency and left flank pain with some radiation of pain to left side of abdomen, states patient is slightly confused today Accepting physician: Yves Transfer comments: To [facility] per private car with son and for further evaluation and treatment [facility] Narrative Medical decision making narrative: Patient presents with with complaints of 3 day history of urinary frequency. some left flank pain with some radiation to left side of abdomen has felt feverish and shaky. Today symptoms increased with patient somewhat confused and having vomiting. Glucose level 155 in express care urine dip with 1+ blood. 1+ leukocytes and protein 3+. Patient tested for Influenza and COVID with results negative. Patient requires further evaluation and higher level of care with report called to [facility] at 1135 with condition update lab results Vs and PMH reviewed with Cara with Dr Marinelli accepting physician. Differential Diagnosis Differential Diagnosis: Differential Diagnoses were considered for flank pain?including Pyelo, UTI, nephrolithiasis, renal infarction, cyst, AAA, PE, cholelithiasis, gastritis, pancreatitis, appendicitis, bowel obstruction, perforation, torsion, RP hematoma (trauma/anticoag). Differential diagnostic considerations for male genitourinary issues include urinary tract infection, priapism, epididymitis, prostatitis, acute retention of urine, inguinal hernia, STI exposure, testicular torsion, Juan Manuel?s gangrene. Lab Data [facility] Lab Attestation statement: I personally reviewed the patient's lab results. Lab results narrative: urine dip glucose negative bilirubin negative ketone negative specific gravity 1.020 blood 1+ pH 6.0 protein 3+ urobilinogen 0.2 nitrate negative leukocyte 1+ urine clear yellow glucose per fingerstick 155, COVID antigen negative, influenza a and B negative Labs: Lab Results 07/06/25 07/06/25 07/06/25 Range/Units 11:16 11:18 11:31 POC Capillary Glucose 155 H (65-105) mg/dl POC Urine Color Yellow POC Urine Clarity Clear POC Urine pH 6.0 POC Ur Specif [place] 1.020 POC Urine Protein 3+ (Negative) POC Ur Glucose (UA) Negative (Negative) POC Urine Ketones Negative (Negative) POC Urine Blood 1+ (Negative) POC Urine Nitrite Negative (Negative) POC Urine Bilirubin Negative (Negative) POC Urine Urobilinogen 0.2 POC U Leukocyte Esteras 1+ (Negative) POC Influenza A Ag Negative (Negative) POC Influenza B Ag Negative (Negative) POC SARS CoV-2 Ag Negative (Negative) reviewed Critical Care Time Critical Care Time Critical Care Time: No Discharge Plan Discharge Clinical Impression: Left flank pain, Febrile illness UTI (urinary tract infection) Qualifiers: Urinary tract infection type: site unspecified Hematuria presence: with hematuria Qualified Code(s): N39.0 - Urinary tract infection, site not specified Patient Disposition: Acute Care Hospital Condition: Serious Patient Language: Mosotho Prescriptions: No Action metformin 500 mg tablet atorvastatin 80 mg tablet carvedilol 25 mg tablet quetiapine 300 mg tablet allopurinol 100 mg tablet levothyroxine 50 mcg tablet hydrochlorothiazide 25 mg tablet losartan 100 mg tablet ezetimibe 10 mg tablet Follow-up/Referrals: Harms,Jacinto Manrique M.D. [Primary Care Provider] Time of Disposition: 11:45 Quality Yassine Coma Scale Eyes: Open Verbal: Oriented and Alert Motor: Follows Commands Yassine Coma Total Score: 15
[2025-07-06 11:18] LABS: EDUAAPPEAR Clear; EDUABILI Negative (Negative); EDUABLOOD 1+ (Negative); EDUACOLOR1 Yellow; EDUAGLUCOSE Negative (Negative); EDUAKETONE Negative (Negative); EDUALEUKO 1+ (Negative); EDUANITRATE Negative (Negative); EDUAPH 6.0; EDUAPROTEIN 3+ (Negative); EDUASPGRAVITY 1.020; EDUAUROBILI 0.2
--- NOTE | 2025-07-06 11:23 | PC.NURSE ---
Blood sugar is 155.
[2025-07-06 11:34] LABS: EDCOVIDSCREEN Negative (Negative); EDINFLUASCREEN Negative (Negative); EDINFLUBSCREEN Negative (Negative)
== END 2025-07-06 11:50 | disposition short-term general hospital (02) ==
PROVIDERS: Emergency Provider Registered Nurse; PCP Family Medicine
DX: R10.A2 Flank pain, left side (principal); R50.9 Fever, unspecified; N39.0 Urinary tract infection, site not specified; Z20.822 Contact with and (suspected) exposure to COVID-19; I10 Essential (primary) hypertension; E03.9 Hypothyroidism, unspecified; Z79.84 Long term (current) use of oral hypoglycemic drugs; E11.9 Type 2 diabetes mellitus without complications; N40.0 Benign prostatic hyperplasia without lower urinary tract symptoms
CPT/HCPCS: 81003; 82948; 87077; 87086; 87186; 87426; 87804; 99213; G0463